=== PATIENT | female | born 1980 | race Caucasian/White ===

== ENCOUNTER 2021-11-04 01:59 | Inpatient (IN) | payer OTHER ==
[2021-11-04] MEDS ORDERED: DEXTROSE 5%-LACTATED RINGERS 500 ML IV ONE ×2 (02:00→03:00)
[2021-11-04 03:14] LABS: BASO % 0.9 % (0-2.0); EOS % 0.1 % (0-4.5); HEMATOCRIT 34.7 % (32.4-45.2); LYMPH % 5.6 % (8-40); MCH 33.1 pg (25.7-33.7); MCHC 34.6 g/dl (32.0-36.0); MEAN CELL VOLUME 95.6 fl (80-96); MEAN PLT VOLUME 10.5 fl (7.5-11.1); MONO % 3.5 % (3.8-10.2); NEUT % 89.9 % (42.8-82.8); PLATELET COUNT 202 10^3/uL (134-434); RBC 3.63 M/mm3 (3.60-5.2); RDW 13.4 % (11.6-15.6); WHITE BLOOD COUNT 16.5 K/mm3 (4.0-10.0)
[2021-11-04 03:22] LABS: INR 0.96 (0.83-1.09)
[2021-11-04 03:44] LABS: CALCIUM 8.9 mg/dL (8.5-10.1)
[2021-11-04 03:45] LABS: BLOOD UREA NITROGEN 13.2 mg/dL (7-18)
[2021-11-04 03:48] LABS: CREATININE 0.6 mg/dL (0.55-1.3)
[2021-11-04 04:39] LABS: HIV INTERPRETATION NEGATIVE (NEGATIVE)
[2021-11-04] MEDS ORDERED: DEXTROSE 5%-LACTATED RINGERS 1,000 ML IV SCH (05:30)
[2021-11-04] MEDS ORDERED: AMPICILLIN SODIUM 2 GM VIAL ONE (07:53)
[2021-11-04] MEDS ORDERED: CITRIC ACID/SODIUM CITRATE 30 ML UNIT-DOSE CUP PO ONE (08:24)
[2021-11-04] MEDS ORDERED: AMPICILLIN - 2 GM in SODIUM CHLORIDE 100 ML IVPB ONE (08:26)
[2021-11-04] MEDS ORDERED: ELECTROLYTE-148 SOLN 1,000 ML IV SCH ×2 (08:30)
[2021-11-04] MEDS ORDERED: OXYTOCIN 20 UNITS in 0.9% NS 20 UNIT/1,000 ML INFUS.BAG IV ONE ×2 (08:40→11:48)
[2021-11-04] MEDS ORDERED: ONDANSETRON 4 MG/2 ML VIAL ONE ×2 (08:41→08:43)
[2021-11-04] MEDS ORDERED: morphine SULFATE/PF 1 MG/2 ML (2cc Syringe - QUVA) ONE (08:41)
[2021-11-04] MEDS ORDERED: PHENYLEPHRINE HCL 10 MG/1 ML SINGLE DOSE VIAL ONE ×2 (08:41→08:45)
[2021-11-04] MEDS ORDERED: KETOROLAC TROMETHAMINE 30 MG/1 ML VIAL ONE (08:44)
[2021-11-04] MEDS ORDERED: ceFAZolin SODIUM 1 GM VIAL ONE (08:50)
[2021-11-04] MEDS ORDERED: ACETAMINOPHEN 325 MG TABLET (FP) PO PRN (10:09)
[2021-11-04] MEDS ORDERED: ONDANSETRON 4 MG/2 ML VIAL IVPB PRN (10:09)
[2021-11-04] MEDS ORDERED: ACETAMINOPHEN 1000 MG/100 ML BAG IVPB PRN (10:09)
[2021-11-04] MEDS ORDERED: IBUPROFEN 800 MG/8 ML IJ IVPB PRN (10:09)
[2021-11-04] MEDS ORDERED: oxyCODONE HCL 5 MG TABLET PO PRN (10:09)
[2021-11-04] MEDS ORDERED: OXYTOCIN 20 UNITS in 0.9% NS 20 UNIT/1,000 ML INFUS.BAG IV SCH (10:15)
[2021-11-04 11:20] VITALS: BMI 26.9
[2021-11-04] MEDS: CEFAZOLIN SODIUM 2 GM in DEXTROSE 5%-WATER 100 ML IVPB SCH (17:57)
[2021-11-04] MEDS: IBUPROFEN 600 MG TABLET (FP) PO PRN (19:28)
[2021-11-04] MEDS: SIMETHICONE 80 MG TAB.CHEW (FP) PO PRN (19:28)
[2021-11-05] MEDS: CEFAZOLIN SODIUM 2 GM in DEXTROSE 5%-WATER 100 ML IVPB SCH (01:08)
[2021-11-05] MEDS: SIMETHICONE 80 MG TAB.CHEW (FP) PO PRN ×4 (01:25→18:36)
[2021-11-05] MEDS: IBUPROFEN 600 MG TABLET (FP) PO PRN ×4 (01:25→21:21)
[2021-11-05 08:29] LABS: BASO % 0.5 % (0-2.0); EOS % 0.2 % (0-4.5); HEMATOCRIT 34.7 % (32.4-45.2); HEMOGLOBIN 11.7 GM/dL (10.7-15.3); LYMPH % 8.2 % (8-40); MCH 32.6 pg (25.7-33.7); MCHC 33.6 g/dl (32.0-36.0); MEAN CELL VOLUME 97.2 fl (80-96); MEAN PLT VOLUME 10.3 fl (7.5-11.1); MONO % 1.7 % (3.8-10.2); NEUT % 89.4 % (42.8-82.8); PLATELET COUNT 215 10^3/uL (134-434); RBC 3.57 M/mm3 (3.60-5.2); RDW 13.2 % (11.6-15.6); WHITE BLOOD COUNT 17.4 K/mm3 (4.0-10.0)
[2021-11-05] MEDS ORDERED: BISACODYL 10 MG SUPP.RECT RC PRN (10:09)
[2021-11-05] MEDS: SENNOSIDES/DOCUSATE COMBO (SENNA PLUS) TABLET (UD) PO PRN (21:21)
[2021-11-06] MEDS: IBUPROFEN 600 MG TABLET (FP) PO PRN ×4 (01:15→20:22)
[2021-11-06] MEDS: SIMETHICONE 80 MG TAB.CHEW (FP) PO PRN ×4 (01:15→20:22)
[2021-11-06] MEDS: SENNOSIDES/DOCUSATE COMBO (SENNA PLUS) TABLET (UD) PO PRN (20:22)
[2021-11-07] MEDS: SIMETHICONE 80 MG TAB.CHEW (FP) PO PRN ×2 (07:55→11:51)
[2021-11-07 08:59] VITALS: BP 116/70; PULSE 87; RESP 20; TEMP 97.8
[2021-11-07] MEDS: IBUPROFEN 600 MG TABLET (FP) PO PRN (11:48)
== END 2021-11-07 15:30 | disposition home or self-care (01) | DRG 540 ==
LOC: JDEL 01:59 → JLDR 07:50 → J3W 12:33
PROVIDERS: ADMIT Specialist; ATTEND Specialist
PROC: 10D00Z1 Extraction of Products of Conception, Low, Open Approach (ICD-10-PCS; principal; 2021-11-04)
DX: O32.2XX0 Maternal care for transverse and oblique lie, not applicable or unspecified (principal); O99.824 Streptococcus B carrier state complicating childbirth; Z3A.39 39 weeks gestation of pregnancy; Z37.0 Single live birth
CPT/HCPCS: 36415; 59025; 80048; 85025; 85610; 85730; 86780; 86850; 86900; 86901; 87389; 88307-TC; C9803-CS; U0003; U0005